=== PATIENT | male | born 1985 | race Caucasian/White ===

== ENCOUNTER → 2025-04-15 11:59 | Outpatient (REF) | payer BC, SELFPAY | LOC: HWRAD 11:59 | PROVIDERS: ATTENDING PHYSICIAN Family Medicine | DX: R20.8 Other disturbances of skin sensation (principal) | CPT/HCPCS: 72050; 72072 ==

== ENCOUNTER → 2025-10-20 06:45 | Outpatient (REF) | payer BC, SELFPAY | LOC: MRI 3T 06:45 | PROVIDERS: ATTENDING PHYSICIAN Orthopaedic Surgery; FAMILY PHYSICIAN Family Medicine | DX: M25.531 Pain in right wrist (principal) | CPT/HCPCS: 73221 ==